=== PATIENT | female | born 1940 | race Caucasian/White ===

== ENCOUNTER 2018-02-22 12:44 | Emergency (ER) | payer MEDICARE, OTHER ==
--- NOTE | 2018-02-22 14:42 | RAD ---
LEFT FIFTH TOE THREE VIEWS: 02/22/2018 HISTORY: Trauma. Pain. 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 Fronta l and oblique imaging demonstrates an obliquely oriented, nondisplaced fracture involving the mid/dis vijay shaft of the 5th proximal phalanx, with very slight lateral angulation. IMPRESSION: Fracture involving the fifth proximal phalanx, as above. POS: [facility]
== END 2018-02-22 14:17 | disposition home or self-care (01) ==
LOC: MADERS 12:44
DX: S92.512A Displaced fracture of proximal phalanx of left lesser toe(s), initial encounter for closed fracture (principal); Z87.891 Personal history of nicotine dependence; Z79.899 Other long term (current) drug therapy; W22.8XXA Striking against or struck by other objects, initial encounter

== ENCOUNTER 2019-07-23 13:47 | Emergency (ER) | payer MEDICARE ==
[2019-07-23] MEDS ORDERED: Ibuprofen 600 MG TAB ONE (14:24)
[2019-07-23] MEDS ORDERED: Ondansetron ODT 4 MG TAB ONE (14:45)
--- NOTE | 2019-07-23 14:56 | RAD ---
XR Forearm Lt 2 View STANDARD History: Pain Comparison: None Findings: No acute forearm fracture. Mild dorsal edema. Impression: Intact forearm. Linear lucency of the radial head does not extend to the articular surfac e and likely artifactual.
--- NOTE | 2019-07-23 14:57 | RAD ---
XR Wrist 3 Lt View STANDARD History: Injury. Pain Comparison: None. 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 There is also degenerativ e disease of the scaphoid trapezium trapezoid joint. No acute fracture. Impression: No acute fracture or malalignment.
== END 2019-07-23 15:23 | disposition home or self-care (01) ==
LOC: MADERS 13:47
DX: S63.502A Unspecified sprain of left wrist, initial encounter (principal); S56.912A Strain of unspecified muscles, fascia and tendons at forearm level, left arm, initial encounter; S00.83XA Contusion of other part of head, initial encounter; S60.511A Abrasion of right hand, initial encounter; Z85.3 Personal history of malignant neoplasm of breast; Z85.42 Personal history of malignant neoplasm of other parts of uterus; Z87.891 Personal history of nicotine dependence; Z79.899 Other long term (current) drug therapy; W18.30XA Fall on same level, unspecified, initial encounter
CPT/HCPCS: Q0162

== ENCOUNTER 2020-09-25 23:45 | Emergency (ER) | payer MEDICARE ==
[2020-09-26] MEDS ORDERED: Lidocaine 2% w/Epinephrine 1:200K 20 ML VIAL ONE (00:35)
== END 2020-09-26 01:45 | disposition home or self-care (01) ==
LOC: MADERS 23:45
DX: S60.351A Superficial foreign body of right thumb, initial encounter (principal); Z87.891 Personal history of nicotine dependence; W45.8XXA Other foreign body or object entering through skin, initial encounter
CPT/HCPCS: 64450

== ENCOUNTER 2021-05-08 10:50 | Emergency (ER) | payer MEDICARE ==
[2021-05-08] MEDS ORDERED: Acetaminophen 500 MG TAB ONE (12:46)
[2021-05-08 13:52] LABS: Bilirubin Negative (Negative); Blood, Urine Trace (Negative); Glucose, Urine (Dipstick) Negative (Negative); Ketone, Urine Negative (Negative); Leukocyte Small (Negative); Nitrite Negative (Negative); Protein, Urine (Dipstick) Negative (Neg-Trace); Specific Gravity, Urine 1.025 (1.005-1.030); Urobilinogen 0.2 mg/dL (Less than 2)
[2021-05-08 14:01] LABS: Clarity Hazy (Clear); RBC/HPF 0-3 HPF (0-3); WBC/HPF 0-3 HPF (0-3)
[2021-05-08 14:02] LABS: Bacteria/HPF Rare-Few HPF (None Seen); Squamous Epithelial 0-3 HPF (0-3)
== END 2021-05-08 14:40 | disposition home or self-care (01) ==
LOC: MADERS 10:50
DX: S63.502A Unspecified sprain of left wrist, initial encounter (principal); S30.1XXA Contusion of abdominal wall, initial encounter; S70.02XA Contusion of left hip, initial encounter; S30.0XXA Contusion of lower back and pelvis, initial encounter; S20.229A Contusion of unspecified back wall of thorax, initial encounter; Z85.3 Personal history of malignant neoplasm of breast; Z85.42 Personal history of malignant neoplasm of other parts of uterus; Z87.891 Personal history of nicotine dependence; Z85.828 Personal history of other malignant neoplasm of skin; W18.30XA Fall on same level, unspecified, initial encounter
CPT/HCPCS: 70450; 71045; 72170; 81003; 81015

== ENCOUNTER 2022-12-19 18:14 | Emergency (ER) | payer MEDICARE | END 2022-12-19 18:50 | disposition left against medical advice (07) | LOC: MADERS 18:14 | DX: T18.108A Unspecified foreign body in esophagus causing other injury, initial encounter (principal) | CPT/HCPCS: 99283 ==

== ENCOUNTER 2025-08-12 21:22 | Emergency (ER) | payer MEDICARE ==
[2025-08-12] MEDS ORDERED: Ibuprofen 600 MG TAB ONE (22:15)
[2025-08-12 22:36] LABS: Hematocrit 48.2 % (36.0-47.0); Hemoglobin 15.6 g/dL (12.0-16.0); MDiff Complete? YES; Mean Corpuscular Hemoglobin 31.2 pg (27.0-31.0); Mean Corpuscular Volume 96.2 fl (78.0-98.0); Platelet Count 132 10x3/uL (130-400); Red Blood Cell (RBC) Count 5.01 mill/uL (4.20-5.40); White Blood Cell (WBC) Count 6.5 10x3/uL (4.8-10.8)
[2025-08-12 22:45] LABS: ALT (SGPT) 12 U/L (Less than 34); AST (SGOT) 21 U/L (11-34); Albumin 3.4 g/dL (3.1-4.5); Alkaline Phosphatase 115 U/L (40-110); Anion Gap 16 mmol/L (10-20); BUN (Urea Nitrogen) 8 mg/dL (9.8-20.1); Bilirubin, Total 2.1 mg/dL (0.3-1.2); Calc. Creatinine Clearance 0 mL/min (70-130); Calcium 9.1 mg/dL (7.8-10.44); Carbon Dioxide 24 mmol/L (23-31); Chloride 101 mmol/L (98-107); Globulin 2.9 g/dL (2.4-3.5); Glucose 116 mg/dL (83-110); Potassium 3.7 mmol/L (3.5-5.1); Sodium 137 mmol/L (136-145)
[2025-08-12 22:48] LABS: Troponin I 0.729 ng/mL (< 0.028)
[2025-08-12 23:25] LABS: Glucose, Urine (Dipstick) Negative (Negative); Leukocyte Small (Negative); Protein, Urine (Dipstick) Negative (Neg-Trace); Specific Gravity, Urine 1.010 (1.005-1.030)
[2025-08-12 23:26] LABS: Bacteria/HPF Rare-Few HPF (None Seen); CAUTI Indications for Culture Pelvic or flank pain; RBC/HPF 0-3 HPF (0-3); Urine Culture Reflex Yes Yes
[2025-08-13] MEDS ORDERED: Aspirin Chewable 81 MG TAB ONE (00:14)
[2025-08-13] MEDS ORDERED: Enoxaparin 60 MG (0.6 mL) SYRINGE ONE (00:14)
[2025-08-13] MEDS ORDERED: Pantoprazole 40 MG DR.TAB ONE (00:53)
[2025-08-13 01:20] LABS: Troponin I 0.671 ng/mL (< 0.028)
== END 2025-08-13 05:10 | disposition short-term general hospital (02) ==
LOC: MADERS 21:22
DX: R79.89 Other specified abnormal findings of blood chemistry (principal); R42 Dizziness and giddiness; Z87.891 Personal history of nicotine dependence; Z79.899 Other long term (current) drug therapy
CPT/HCPCS: 36415; 71045; 80053; 81001; 83605; 84484; 85025; 87086; 87428; 93005; 96372; J1650